=== PATIENT | male | born 1975 | race Caucasian/White ===

== ENCOUNTER → 2018-04-18 15:59 | Outpatient (CLI) | payer OTHER, SELFPAY ==
[2018-04-18 17:54] LABS: Amphetamine Urine VISTA NEGATIVE (<1000 ng/mL); Barbiturate Urine VISTA NEGATIVE (< 200 ng/mL); Benzodiazepine Urine VISTA NEGATIVE (< 200 ng/mL); Cocaine Urine VISTA NEGATIVE (< 300 ng/mL); Ecstacy Urine VISTA NEGATIVE (< 500 ng/mL); Methadone Urine VISTA NEGATIVE (< 300 ng/mL); PCP Urine VISTA NEGATIVE (< 25 ng/mL); THC Urine VISTA NEGATIVE (< 50 ng/mL); Vista UDS pH Range 5
== END ==
LOC: BFHLAB 16:00
PROVIDERS: Family Provider Family Medicine; PCP Family Medicine; Visit Provider Family Medicine
DX: Z51.81 Encounter for therapeutic drug level monitoring (principal)
CPT/HCPCS: 80307

== ENCOUNTER → 2018-09-19 10:05 | Outpatient (CLI) | payer OTHER, SELFPAY ==
[2018-09-19 12:17] LABS: Absolute Lymphocyte Count 2.09 X10^3/ul (0.83-4.51); Absolute Neutrophil Count 4.1 X10^3/uL (2.0-7.7); Basophil# 0.06 X10^3/uL; Basophil% 0.9 % (0-1); Eosinophil# 0.19 X10^3/uL; Eosinophils% 2.7 % (0-5); Hematocrit 47.8 % (40-54); Hemoglobin 16.2 g/dl (13.0-16.5); Lymphocyte # 2.09 X10^3/ul (4.0); Lymphocyte % 29.9 % (19-41); Mean Corp Hgb Conc 33.9 g/gl (32-36); Mean Corpuscular Hgb 30.1 pg (27.0-32.0); Mean Corpuscular Volume 88.7 fL (80-94); Mean Platelet Vol. 10.3 fl (6.2-12.0); Monocyte# 0.53 X10^3/uL; Monocyte% 7.6 % (0-10); Neutrophil % 58.8 % (47-70); Platelet Count 219 K/mm3 (150-450); RBC Distribution Width CV 13.3 % (11.6-14.6); RBC Distribution Width SD 43.5 fl (35.1-43.9); Red Blood Count 5.39 M/mm3 (4.6-6.2)
[2018-09-19 12:27] LABS: POSITIVE COUNT NO; POSITIVE DIFFERENTIAL NO; POSITIVE MORPHOLOGY NO
[2018-09-19 12:29] LABS: ALB/GLOB Ratio 1.1 RATIO (0.9-2.4); AST(SGOT) 23 U/L (15-37); Alanine Aminotransfer ALT/SGPT 72 U/L (16-61); Albumin, Serum 4.2 g/dL (3.2-5.0); Alkaline Phosphatase 49 U/L (45-117); Anion Gap 9 (5-15); BUN 18 mg/dL (7-18); BUN/Creat Ratio 16.7 RATIO (10-20); Calcium,Total 9.2 mg/dL (8.5-10.1); Chloride 107 mmol/L (98-107); Cholesterol 213 mg/dL (200); Creatinine, Serum 1.08 mg/dL (0.70-1.30); EST Glomerular Filtration Rate 80 mL/min (>60); Est Glom Filt Rate - Afr Amer 96 mL/min (>60); Globulin 3.9 g/dL (2.2-4.2); Glucose 92 mg/dL (74-106); High Density Lipoprotein 30 mg/dL; Potassium 4.4 mmol/L (3.5-5.1); Protein, Total 8.1 g/dL (6.4-8.2); Sodium Level 140 mmol/L (136-145); Triglycerides 313 mg/dL; Very Low Density Lipoprotein 63 mg/dL (5-40)
--- OUTSIDE RECORDS SUMMARY | 2018-11-14 05:13 | XMS RPT_ITS ---
:1975 Author Organization OHIP Care Team Providers Name Role Phone Hari Lares Attending Unavailable Hari Lares Primary Care Unavailable Hari Lares Attending Unavailable Hari Lares Primary Care Unavailable PROBLEMS PROBLEMS DATE TYPE CONDITION / CODE ATTENDING STATUS SOURCE 09/30/2018 Unknown I10 - Essential Hari Lares Active [place] (primary) [facility] hypertension / Hospital I10(ICD-10) Repository PROCEDURES PROCEDURES No Procedure Records FoundRESULTS RESULTS CBC W/DIFF, AUTOMATED Collected: 09/19/2018 Status: F Source: [facility] 10:07 AM [facility] HOSPITAL REPOSITORY TYPE CODE TESTS RESULT OUT OF RANGE REFERENCE UNITS LAB L100.1000 4.4-11.0 K/mm3 Normal WBC 7.0 LAB L100.1200 4.6-6.2 M/mm3 Normal RBC 5.39 LAB L100.1300 13.0-16.5 g/dl Normal HGB 16.2 LAB L100.1400 40-54 % Normal HCT 47.8 LAB L100.1500 80-94 fL Normal MCV 88.7 LAB L100.1600 27.0-32.0 pg Normal MCH 30.1 LAB L100.1700 32-36 g/gl Normal MCHC 33.9 LAB L100.1810 11.6-14.6 % Normal RDW CV 13.3 LAB L100.1820 35.1-43.9 fl Normal RDW SD 43.5 LAB L100.1900 150-450 K/mm3 Normal PLT 219 LAB L100.2000 6.2-12.0 fl Normal MPV 10.3 LAB L100.2100 47-70 % Normal NEUT% 58.8 LAB L100.2200 19-41 % Normal LY% 29.9 LAB L100.2300 0-10 % Normal MONO% 7.6 LAB L100.2400 0-5 % Normal EO% 2.7 LAB L100.2500 0-1 % Normal BASO% 0.9 LAB L100.2550 0.0-0.9 % Normal IM GRAN % 0.100 Result Comment: IG% - Immature Granulocytes (promyelocytes, myelocytes and metamyelocytes) > 1% indicates that a LEFT SHIFT is Present. LAB L100.2620 2.0-7.7 X10 3/uL Normal Absolute Neut 4.1 LAB L100.2720 0.83-4.51 X10 3/ul Normal Absolute Lymph 2.09 Performed By: #### L100.0100 #### [facility] [address] [place], [address] COMPREHENSIVE METABOLIC Collected: 09/19/2018 Status: F Source: [facility] 10:07 AM [facility] REPOSITORY Order Comment: Comments: TEMP TYPE CODE TESTS RESULT OUT OF RANGE REFERENCE UNITS LAB L501.0100 74-106 mg/dL Normal GLU 92 Result Comment: Please note revised GLUCOSE reference range effective 2017. LAB L501.1000 7-18 mg/dL Normal BUN 18 LAB L501.1100 0.70-1.30 mg/dL Normal CREAT,SERUM 1.08 Result Comment: The validity of the calculated GFR AND GFRAA in patients over 70 years has not been determined. Clinical correlation is essential. LAB L501.1110 >60 mL/min Normal EST GFR 80 Result Comment: Non- GFR Calc LAB L501.1115 >60 mL/min Normal EST GFR - AA 96 Result Comment: GFR Calc LAB L501.1300 10-20 RATIO Normal BUN/CRE 16.7 LAB L501.1500 6.4-8.2 g/dL T Normal PROT 8.1 LAB L501.1800 3.2-5.0 g/dL Normal ALB 4.2 LAB L501.1950 2.2-4.2 g/dL Normal GLOB 3.9 LAB L501.2000 0.9-2.4 RATIO Normal A/G 1.1 LAB L501.2200 8.5-10.1 mg/dL CA Normal 9.2 LAB L501.4100 15-37 U/L Normal AST 23 LAB L501.4305 45-117 U/L Normal ALK P 49 LAB L501.4405 16-61 U/L High ALT 72 LAB L501.4600 0.20-1.00 mg/dL T Normal BILI 0.40 LAB L501.5300 136-145 mmol/L NA Normal 140 LAB L501.5600 3.5-5.1 mmol/L K Normal 4.4 LAB L501.5900 98-107 mmol/L CL Normal 107 LAB L501.6100 21.0-32.0 mmol/L Normal CO2 24.0 LAB L501.6200 5-15 Normal GAP 9 Performed By: #### L500.4050, L500.4100 #### [facility] [address] [place], [place], [id number] LIPID PROFILE Collected: 09/19/2018 Status: F Source: [facility] 10:07 AM [facility] REPOSITORY Order Comment: Comments: RM TEMP TYPE CODE TESTS RESULT OUT OF RANGE REFERENCE UNITS LAB L501.4900 200 mg/dL High CHOL 213 Result Comment: <200 mg/dL Desirable 200-240 mg/dL Borderline >240 mg/dL High Risk LAB L501.5000 mg/dL High TRIG 313 Result Comment: The drugs N-Acetylcysteine and Metamizole may falsely depress this assay. Serum Triglycerides Reference Interval Normal <150 mg/dL Borderline high 150 - 199 mg/dL High 200 - 499 mg/dL Very High > or = 500 mg/dL LAB L501.6400 mg/dL Low HDL 30 Result Comment: The drugs N-Acetylcysteine and Metamizole may falsely depress this assay. Reference Range HDL <40 mg/dL Low HDL Cholesterol HDL >or= 60 mg/dL High HDL Cholesterol LAB L501.6500 0-130 mg/dL Normal LDL 120 LAB L501.6600 5-40 mg/dL High VLDL 63 Performed By: #### L500.4050, L500.4100 #### [facility] [address] [place], [place], [id number] MISCELLANEOUS LAB Collected: 09/19/2018 Status: F Source: [facility] PROCEDURE 10:07 AM [facility] REPOSITORY Order Comment: Comments: RM TEMP Test(s) Ordered: [id number] TYPE CODE TESTS RESULT OUT OF RANGE REFERENCE UNITS LAB L801.1541 Normal [facility] TEST Result Comment: TEST RESULT LIMITS Drug Screen 16 w/Conf, WB AMPHETAMINES, [place] Negative ng/mL Cutoff:50 BARBITURATES, [place] Negative ug/mL Cutoff:0.1 BENZODIAZEPINES, [place] Negative ng/mL Cutoff:20 COCAINE/METABOLITE,[place] Negative ng/mL Cutoff:25 PHENCYCLIDINE, [place] Negative ng/mL Cutoff:8 THC (MARIJUANA) MTB,IA Negative ng/mL Cutoff:5 OPIATES, [place] Negative ng/mL Cutoff:5 OXYCODONES, [place] Negative ng/mL Cutoff:5 METHADONE, [place] Negative ng/mL Cutoff:25 FENTANYL, [place] Negative ng/mL Cutoff:1.0 BUPRENORPHINE, [place] Negative ng/mL Cutoff:1.0 PROPOXYPHENE, [place] Negative ng/mL Cutoff:50 MEPERIDINE, IA Negative ng/mL Cutoff:100 TRAMADOL, [place] Negative ng/mL Cutoff:50 GABAPENTIN, [place] Negative ug/mL Cutoff:1.0 CARISOPRODOL, [place] Negative ug/mL Cutoff:0.5 This test was developed and its performance characteristics determined by [facility]. It has not been cleared or approved by the Food and Drug Administration. TESTING PERFORMED AT [facility]. ORIGINAL REPORT ON FILE IN LAB CONTAINS ADDITIONAL TEST SITE INFORMATION. Performed By: #### L801.1541 #### [facility] [address] [place], [address] URINE DRUG SCREEN Collected: 04/18/2018 Status: F Source: [facility] (VISTA) 4:01 PM [facility] REPOSITORY Order Comment: List of Drugs Taken or Suspected? U TYPE CODE TESTS RESULT OUT OF RANGE REFERENCE UNITS LAB L505.0075 TO BE Normal CONFIRMED Result Comment: CONFIRMATORY TESTING FOR ALL POSITIVE URINE DRUG SCREEN RESULTS WILL ONLY BE SENT OUT UPON PHYSICIAN ORDER. VISTA Urine Drug Screen methods provide only preliminary analytical test results. A more specific alternate chemical method must be used in order to obtain a confirmed analytical result. Gas chromatography/mass spectrometery (GC/MS) is the preferred confirmatory method. Clinical consideration and professional judgement should be applied to any drug of abuse test result, particularly when preliminary positive results are used. URINE TCA TESTING MUST BE ORDERED SEPARATELY. USE TEST MNEMONIC: [facility] LAB L505.5005 VISTA UDS PH 5 Normal LAB L505.5015 <1000 ng/mL AMPHETAMINES Normal NEGATIVE LAB L505.5025 < 200 ng/mL BARBITIURATES Normal NEGATIVE LAB L505.5035 < 200 ng/mL BENZODIAZIPINE Normal NEGATIVE LAB L505.5045 < 300 ng/mL COCAINE Normal NEGATIVE LAB L505.5055 < 500 ng/mL ECSTACY Normal NEGATIVE LAB L505.5065 < 300 ng/mL METHADONE Normal NEGATIVE LAB L505.5075 < 300 ng/mL OPIATES Normal NEGATIVE LAB L505.5085 < 25 ng/mL PCP Normal NEGATIVE LAB L505.5095 < 50 ng/mL THC Normal NEGATIVE Performed By: #### L505.5000 #### [facility] [address] [place], [address] ALLERGIES ALLERGIES No Allergies Records FoundENCOUNTERS ENCOUNTERS ADMIT/DISCHARGE ACCOUNT ADMITTING ENCOUNTER LOCATION SOURCE NUMBER CLASS 09/19/2018 [id number] Ambulatory [facility] 7 [facility] ing:BFHLAB Repository 04/18/2018 [id number] [facility] 4 [facility] ing:BFHLAB Repository PAYERS PAYERS ENCOUNTER GUARANTOR PAYER SUBSCRIBER SOURCE 09/19/2018 Dmitriy Good [facility] Dmitriy C[facility] Insurance:ESPERANZA MarieOB: [facility] [id number] [address]Dcb: Number: Repository [id number] (HP) Date:[id number] [id number]: 09/19/2018 Secondary NOT GIVENUNK William Insurance:SELF PAY [facility] Number: Effective Repository Date:2018-09-19 04/18/2018 Dmitriy [id number] Primary Dmitriy [address] Insurance:CARESOURCE StevemanDOB: [facility] [id number] [address]Qxr: Number: Repository [id number] (HP) Date:[id number], [place] [address]RZ: 04/18/2018 Secondary NOT GIVENUNK [place] Insurance:SELF PAY [facility] Number: Effective Repository Date:2018-04-18
== END ==
PROVIDERS: Family Provider Family Medicine; PCP Family Medicine; Visit Provider Family Medicine
DX: I10 Essential (primary) hypertension (principal); E66.9 Obesity, unspecified; Z51.81 Encounter for therapeutic drug level monitoring
CPT/HCPCS: 36415; 80053; 80061; 85025

== ENCOUNTER 2019-05-19 23:37 | Emergency (ER) | payer SELFPAY ==
[2019-05-19 23:38] VITALS: BP 141/91; PULSE 86; RESP 16; TEMP 36.3; O2SAT 97; BMI 31.6
--- NOTE | 2019-05-19 23:55 | ED.VISSUMM ---
- ER Visit Summary Date of Service: 05/19/19 Chief Complaint: Foot pain History of Present Illness: The patient is a 43 M who presents with left foot pain. He initially had itching this morning. He then noticed a blister along the fourth toe and some cracking between the toes. He then developed increased redness and weeping. No fevers. He is not diabetic. No history of prior similar symptoms. Physical Examination: Afebrile vitals unremarkable Moist mucous membranes Heart regular Respiratory distress The space between the left third and fourth toes is moist erythematous and weeping with cracked skin. There is some erythema of the left fourth toe extending onto the top of the foot. No lymphangitic streaking. Mild soft tissue swelling. Test Results: Not indicated Emergency Department Course and Treatment: Examination is consistent with tinea pedis with a secondary bacterial infection/cellulitis. We will treat with Keflex. He was also advised on antifungal cream [id number] such as Lotrimin. He will follow-up as an outpatient but does understand to return for new or worsening symptoms. Patient agreeable with this plan was discharged. Treatment Plan: [] Disposition: Discharge Impression: Cellulitis left foot Tinea pedis This note was generated with BriefCam dictation software. It may contain incorrect words, spelling, and punctuation that were not noted in review of the chart prior to signing ED Disposition - Plan for ED Patient: Referrals: Hari Lares DO [Primary Care Provider] -
--- NOTE | 2019-05-19 23:57 | ED.DEP ---
ED Disposition - Plan for ED Patient: Instructions: Athlete'S Foot, Cellulitis Prescriptions: Cephalexin [Keflex] 500 mg PO Q6 #40 cap Prescription Printed Referrals: Hari Lares DO [Primary Care Provider] -
[2019-05-20 00:12] VITALS: RESP 14
== END 2019-05-20 00:12 | disposition home or self-care (01) ==
PROVIDERS: Emergency Provider Emergency Medicine; Family Provider Family Medicine; PCP Family Medicine
DX: L03.116 Cellulitis of left lower limb (principal); B35.3 Tinea pedis; I10 Essential (primary) hypertension; Z72.0 Tobacco use
CPT/HCPCS: 99282

== ENCOUNTER → 2020-06-22 10:26 | Outpatient (CLI) | payer SELFPAY ==
[2020-06-22 12:34] LABS: Insulin 13.4 mU/L (2.6-37.6)
[2020-06-22 12:38] LABS: AST(SGOT) 11 U/L (15-37); Alanine Aminotransfer ALT/SGPT 27 U/L (16-61); Albumin, Serum 3.8 g/dL (3.2-5.0); Alkaline Phosphatase 40 U/L (45-117); Anion Gap 5 (5-15); BUN 9 mg/dL (7-18); BUN/Creat Ratio 9.6 RATIO (10-20); Calcium,Total 8.7 mg/dL (8.5-10.1); Chloride 108 mmol/L (98-107); Creatinine, Serum 0.94 mg/dL (0.70-1.30); EST Glomerular Filtration Rate 93 mL/min (>60); Est Glom Filt Rate - Afr Amer 113 mL/min (>60); Free T3 2.8 pg/mL (2.18-3.98); Globulin 3.8 g/dL (2.2-4.2); Glucose 88 mg/dL (74-106); Potassium 4.7 mmol/L (3.5-5.1); Protein, Total 7.6 g/dL (6.4-8.2); Sodium Level 139 mmol/L (136-145); T4 Free Direct 0.96 ng/dL (0.76-1.46); Thyroid Stim Hormone (TSH) 2.21 uIU/mL (0.358-3.74)
== END ==
LOC: BFHLAB 10:27
PROVIDERS: PCP Family Medicine; Visit Provider Family Medicine
DX: R00.2 Palpitations (principal); R61 Generalized hyperhidrosis; I10 Essential (primary) hypertension; E16.2 Hypoglycemia, unspecified
CPT/HCPCS: 36415; 80053; 82533; 83525; 84439; 84443; 84481

== ENCOUNTER → 2020-06-30 13:12 | Outpatient (CLI) | payer SELFPAY ==
--- NOTE | 2020-06-30 13:17 | STE_ITS ---
Reason For Study: INTERMITTENT PALPITATIONS Stress Results Protocol: Stress Echocardiogram Maximum Predicted HR: 177 bpm Target HR: 150 bpm % Maximum Predicted HR: 97 % DurationHeart Rate Stage (mm:ss) (bpm) BP Comment BASELINE 74 128/82 YUMIKO PROTOCOL- STAGE 1 3:00 104 142/68NO SX YUMIKO PROTOCOL- STAGE 2 3:00 122 150/74NO SX YUMIKO PROTOCOL- STAGE 3 3:00 150 160/70CALVES BURNING, SL DYSPNEA YUMIKO PROTOCOL- STAGE 4 1:00 171 / CALVES BURNING, DYSPNEA RECOVERY 97 134/76SX SUBSIDED Stress Duration: 10:00 mm:ss Maximum Stress HR: 171 bpm Baseline Echocardiogram Findings The estimated ejection fraction is 60 %. post stress EF is 70%. Stress Echo Wall motion Data Resting WM Intermediate WM Stress WM Resting Wall Motion Wall Motion Stress No regional wall motion No regional wall motion abnormalities noted. abnormalities noted. EKG Data The baseline ECG displays normal sinus rhythm. No significant ST- T changes. Symptoms with Stress The patient experinced no chest pain . Interpretation Summary The estimated ejection fraction is 60 %. Stress echo is negative for stress induced CP or EKG or Echocardiographic changes of ischemia. Functional capacity is normal for age Ordering Physician: Hari Lares Referring Physician: Hari Lares Performed By: Kalyani Madison, KAYLEE
== END ==
PROVIDERS: PCP Family Medicine; Referring Provider Family Medicine; Visit Provider Family Medicine
DX: R00.2 Palpitations (principal); R61 Generalized hyperhidrosis; I10 Essential (primary) hypertension
CPT/HCPCS: 93017; 93350

== ENCOUNTER 2023-02-19 13:59 | Emergency (ER) | payer SELFPAY ==
[2023-02-19 14:00] VITALS: BP 153/104; PULSE 81; RESP 16; TEMP 36.3; O2SAT 100; BMI 35.5
[2023-02-19 14:07] VITALS: BMI 35.8
[2023-02-19 14:10] VITALS: BP 159/101; PULSE 76; RESP 16; O2SAT 96
[2023-02-19 14:31] LABS: Bedside Glucose 133 mg/dL (74-106)
[2023-02-19] MEDS: Aspirin 81 MG TAB.CHEW 324 MG PO (14:52)
[2023-02-19 14:53] LABS: Absolute Lymphocyte Count 2.21 X10^3/uL (0.83-4.51); Basophil# 0.09 X10^3/uL; Basophil% 1.3 % (0-1); Eosinophil# 0.31 X10^3/uL; Eosinophils% 4.3 % (0-5); Hematocrit 49.9 % (40-54); Hemoglobin 16.6 g/dL (13.0-16.5); Lymphocyte # 2.21 X10^3/ul (0.83-4.51); Lymphocyte % 30.9 % (19-41); Mean Corp Hgb Conc 33.3 g/dL (32-36); Mean Corpuscular Hgb 29.8 pg (27.0-32.0); Mean Corpuscular Volume 89.6 fL (80-94); Mean Platelet Vol. 9.7 fl (6.2-12.0); Monocyte# 0.56 X10^3/uL; Monocyte% 7.8 % (0-10); NRBC Flagged by Analyzer 0 % (0-5); Neutrophil # 3.95 X10^3/uL (2.7-7.7); Neutrophil % 55.1 % (47-70); Platelet Count 206 K/mm3 (150-450); RBC Distribution Width CV 13.1 % (11.6-14.6); RBC Distribution Width SD 43.2 fl (35.1-43.9); Red Blood Count 5.57 M/mm3 (4.6-6.2); White Blood Count 7.2 K/mm3 (4.4-11.0)
--- NOTE | 2023-02-19 14:56 | RAD_ITS ---
STUDY: X-RAY CHEST REASON FOR EXAM: Male, 47 years old. Chest pain TECHNIQUE: Single AP portable view of the chest. COMPARISON: None. FINDINGS: EKG electrodes are seen. The lungs are clear and expanded. There is no demonstrated pleural abnormality. Normal size heart. Normal mediastinum and dylon. Normal visualized pulmonary arteries. Normal visualized aortic arch and descending thoracic aorta. Normal visualized thoracic spine. Normal visualized ribs, clavicles, and shoulders. There is no demonstrated abnormality of the visualized soft tissue structures of the upper abdomen. RAD/Chest 1 View (Portable) IMPRESSION: Normal x-ray examination of the chest. Electronically Signed: Maxi De Paz MD at 15:15 EDT ,
[2023-02-19 15:02] LABS: Anion Gap 7 (5-15); BUN 13 mg/dL (7-18); BUN/Creat Ratio 12.3 RATIO (10-20); CPK Total, Creatine Kinase 252 U/L (39-308); Calcium,Total 9.2 mg/dL (8.5-10.1); Chloride 104 mmol/L (98-107); Creatinine, Serum 1.06 mg/dL (0.70-1.30); EST Glomerular Filtration Rate 80 mL/min (>60); Est Glom Filt Rate - Afr Amer 97 mL/min (>60); Estimated Creatinine Clearance 92.74 ml/min; Glucose 133 mg/dL (74-106); Magnesium 2.2 mg/dL (1.6-2.6); Potassium 4.1 mmol/L (3.5-5.1); Sodium Level 138 mmol/L (136-145); Troponin-I HS (w/2H Reflex) 4 pg/mL (3.0-78.0)
[2023-02-19 15:03] LABS: D-Dimer Quantitative (DVT/PE) < 0.27 FEU/ug/m (0.27-0.49)
[2023-02-19 15:17] VITALS: BP 152/83; PULSE 79; RESP 16; O2SAT 96
--- NOTE | 2023-02-19 15:49 | EDS_ITS ---
HPI History of Present Illness Chief Complaint: Neuro S/Sx Informant: patient Narrative Narrative: Patient is a 47-year-old male with history of hypertension and possible prediabetes presenting with chest pain. Patient states he was down in [place] for a car race on Saturday. He states the next day he was tired and less active than normal. Today while driving for work he does not remember part of the drive and does not remember crossing the state line. He thought maybe his blood sugar was low and ate some candy. He talked to his cousin was feeling better. He then did not remember driving back to early. He notes that around noon today he started developing pain in the left side of his chest that radiates to his axilla and proximal left arm. States the pain last for 9 to 12 minutes at a time. It is worse when he coughs. He denies any shortness of breath. Nuys any swelling of his legs. Denies any history of DVT or PE. Denies any exercise intolerance. Did take tramadol today. Notes that he also has developed some sharp, shocking pain in his left anterior thigh. He notes he does have a history of back issues. His last tress test was in 2015. Denies any other complaints at this time. [facility] Medical History HTN (hypertension) Prediabetes Medical History no medical history Home Medications cephalexin 500 mg capsule 500 mg PO Q6 #40 caps 05/19/19 [Rx Last Taken Unknown] metoprolol succinate 50 mg tablet,extended release 24 hr 50 mg PO DAILY 05/19/19 [History Last Taken Unknown] Allergy/AdvReac Type Severity Reaction Status Date / Time amoxicillin Allergy Rash Verified 02/19/23 14:03 Penicillins [PCN] Allergy Rash Verified 02/19/23 14:03 Social History Smoking Status: Current every day smoker tobacco type: cigarettes ROS ROS ED Constitutional Constitutional ED: Denies chills or fever(s) Eyes Eyes: Denies change in vision ENT ENT ED: Denies sore throat Cardiovascular Cardiovascular: Reports chest pain; Denies palpitations Respiratory/Chest Respiratory/Chest: Denies cough, dyspnea or dyspnea on exertion Gastrointestinal Gastrointestinal: Denies abdominal pain, diarrhea, nausea or vomiting Genitourinary Genitourinary ED: Denies dysuria Musculoskeletal Musculoskeletal: Reports arthralgias and myalgias; Denies back pain or neck pain Integumentary Denies rash Neurologic Neurologic: Denies headache(s), paresthesias or weakness Psychiatric Psychiatric: Denies anxiety Hematologic/Lymphatic Hematologic/Lymphatic: Denies easy bleeding or easy bruising EXAM Physical Exam Const Vital Signs: 02/19/23 14:00 02/19/23 14:08 02/19/23 14:10 Temperature 97.4 F L Temperature Source Temporal Pulse Rate 81 76 Respiratory Rate 16 16 Respiratory Effort Normal Blood Pressure 153/104 H 159/101 H Blood Pressure Mean 120 120 Pulse Ox 100 96 Oxygen Delivery Method Room Air Room Air 02/19/23 14:52 02/19/23 15:17 02/19/23 16:09 Temperature Temperature Source Pulse Rate 79 75 Respiratory Rate 16 14 Respiratory Effort Blood Pressure 152/83 H 152/102 H Blood Pressure Mean 106 118 Pulse Ox 96 96 Oxygen Delivery Method Room Air Room Air Room Air Positive well nourished and well developed General Appearance ED: well developed and NAD HEENT Reports moist mucous membranes Eyes PERRL and EOMs intact bilaterally Neck supple and no JVD Chest Wall inspection of chest normal and palpation of chest normal Chest Narrative: No chest wall tenderness to palpation Resp normal respiratory effort and clear to auscultation bilaterally Cardio regular rate, regular rhythm and no murmurs GI normal to inspection, nondistended, normoactive bowel sounds and non-tender Extremity normal to inspection Extremity Narrative: 2+ radial and DP pulses Patient points to his left anterior thigh as area of his pain. Is worsened with flexion of the hip. General Extremety ED: Negative for edema or tenderness General Extremity: Negative for edema Neuro oriented x3 Sensorium / Orientation: alert Motor Exam: Negative for general weakness Psych mental status grossly normal Skin no rashes or lesions noted and no wounds Skin Narrative: luis appearance MDM MDM MDM Narrative Medical decision making narrative: Patient evaluated for left-sided chest pain. He is also having some left leg pain however I think that is neuropathic in nature and seems to worsen with flexion of the hip. Questionably has a component of nerve compression from his spine. A cardiac work-up as well as D-dimer is obtained because of the patient's symptomatology. Patient is a current neurologic exam and is acting normally. 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 He denies any type of head trauma. CBC is remarkable for mildly elevated hemoglobin of 16.6. His BMP is largely normal. Initial high- sensitivity troponin is normal at 4. His D-dimer is less than 0.27 I do not suspect PE or think a CTA is indicated. CPK is normal. We will obtain a delta high-sensitivity troponin. If this is normal dissipate patient can be discharged with outpatient follow-up. Patient is agreeable this plan of care. Patient is given dose of aspirin in the emergency room. Work-up is coming back largely normal. The cause of his symptoms is not entirely clear. This is discussed with the patient. He is comfortable with outpatient follow-up. Discussed outpatient stress test with his primary care doctor. Given strict return precautions. Counseled that if he is getting worse or starts to come down with any new symptoms he should return to the emergency room. Lab Data Attestation: I reviewed the patient's lab results. Labs: Laboratory Results - last 24 hr 02/19/23 02/19/23 02/19/23 14:00 14:00 14:00 WBC 7.2 RBC 5.57 Hgb 16.6 H Hct 49.9 MCV 89.6 MCH 29.8 MCHC 33.3 RDW Std Deviation 43.2 RDW Coeff of Khai 13.1 Plt Count 206 MPV 9.7 Immature Gran % (Auto) 0.600 Neut % (Auto) 55.1 Lymph % (Auto) 30.9 [place] % (Auto) 7.8 Eos % (Auto) 4.3 Baso % (Auto) 1.3 H Absolute Neuts (auto) 4.0 Absolute Lymphs (auto) 2.21 Nucleated RBC % 0 D-Dimer Quant (PE/DVT) < 0.27 L Sodium 138 Potassium 4.1 Chloride 104 Carbon Dioxide 27.0 Anion Gap 7 BUN 13 Creatinine 1.06 Estim Creat Clear Calc 92.74 Est GFR (MDRD) Af Amer 97 Est GFR (MDRD) Non-Af 80 BUN/Creatinine Ratio 12.3 Glucose 133 H Calcium 9.2 Magnesium 2.2 Total Creatine Kinase 252 Troponin I High Sens 4 POC Glucose 02/19/23 14:08 WBC RBC Hgb Hct MCV MCH MCHC RDW Std Deviation RDW Coeff of Khai Plt Count MPV Immature Gran % (Auto) Neut % (Auto) Lymph % (Auto) [place] % (Auto) Eos % (Auto) Baso % (Auto) Absolute Neuts (auto) Absolute Lymphs (auto) Nucleated RBC % D-Dimer Quant (PE/DVT) Sodium Potassium Chloride Carbon Dioxide Anion Gap BUN Creatinine Estim Creat Clear Calc Est GFR (MDRD) Af Amer Est GFR (MDRD) Non-Af BUN/Creatinine Ratio Glucose Calcium Magnesium Total Creatine Kinase Troponin I High Sens POC Glucose 133 H Radiography Chest X-Ray - ED: 1 View, Read by ED Physician, Read by Radiologist and No Acute Disease Diagnostic Testing: Clinical Impression(s) from Imaging Studies Chest X-Ray 02/19/23 14:56 IMPRESSION: Normal x-ray examination of the chest. Electronically Signed: Maxi De Paz MD at 15:15 EDT Reading Location ID and State: [address] [place] [address] , Service support , Rhythm Strip Rhythm Strip: Sinus Rhythm Rate: 66 Ectopy: None EKG Initial EKG: Attestation: I personally reviewed and interpreted this EKG as follows: Interpretation: Sinus Rhythm Comments: Normal sinus rhythm at a rate of 66 bpm Normal intervals Normal axis Normal ST segments Prior EKG tracings: not available for review Prior: No Prior Differential Diagnosis Chest pain/SOB: pulmonary embolism Reason(s) PE less likely: Positive for Well's <3, D-Dimer negative, not tachycardic and not hypoxic, ACS ACS: Positive for no evidence of ACS based on cardiac biomarkers, EKG without ischemia and history not suggestive of ischemia pain, pneumothorax Reason(s) pneumothorax less likely: Positive for bilateral breath sounds and 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, pneumonia Reason(s) pneumonia less likely: Positive for no infiltrate on CXR, no elevation in WBC count and symptoms not consistent with acute infection and aortic dissection Reason(s) Aortic dissection less likely:: Positive for normal vascular exam, normal neurological exam, no widened mediastinum on CXR, no ripping/tearing pain and blood pressure appropriate in ED Discharge Plan Triage Chief Complaint: Neuro S/Sx Other Complaint: Chest Pain ED Provider: Grace Rodriguez Dx/Rx/DC Orders Clinical Impression: Chest pain of uncertain etiology, Malaise and fatigue Instructions: ED Chest Pain, Uncertain Cause Prescriptions: No Action metoprolol succinate 50 MG tablet extended release 24 hr 50 mg PO DAILY cephalexin 500 MG capsule 500 mg PO Q6 Qty: 40 0RF Primary Care Provider: Hari Lares Referrals: Hari Lares DO [Primary Care Provider] - Activity Restrictions/Additional Instructions: The exact cause your symptoms is not clear today however your work-up today did not reveal any obvious cause or pathology. Your heart looks largely normal. No signs of a blood clot. No signs of pneumonia. Please return to the ER should you develop any worsening symptoms. Otherwise please follow-up with your family doctor to discuss outpatient stress test Disposition Disposition: Home, Self Care Discharge Date/Time: 02/19/23 17:50
[2023-02-19 16:09] VITALS: BP 152/102; PULSE 75; RESP 14; O2SAT 96
[2023-02-19 16:45] LABS: Reflex Troponin-HS? (from REC) Y
[2023-02-19 17:18] LABS: Troponin-I HS 5 pg/mL (3.0-78.0)
[2023-02-19 17:49] VITALS: BP 147/98; RESP 16
== END 2023-02-19 17:50 | disposition home or self-care (01) ==
PROVIDERS: Emergency Provider Emergency Medicine; PCP Family Medicine; Visit Provider Emergency Medicine
DX: R07.9 Chest pain, unspecified (principal); R53.81 Other malaise; F17.210 Nicotine dependence, cigarettes, uncomplicated; I10 Essential (primary) hypertension; R53.83 Other fatigue; Z79.899 Other long term (current) drug therapy
CPT/HCPCS: 71045; 80048; 82550; 82962; 83735; 84484; 85025; 85379; 93005; 99284; A4216

== ENCOUNTER → 2023-12-30 | Outpatient (CLI) | payer SELFPAY ==
--- NOTE | 2023-12-30 11:00 | RAD_ITS ---
STUDY: X-RAY CHEST REASON FOR EXAM: Male, 48 years old. Chronic cough TECHNIQUE: PA and lateral views of the chest. COMPARISON: 02/19/2023 FINDINGS: The lungs are clear and expanded. There is no demonstrated pleural abnormality. Normal size heart. Normal mediastinum and dylon. Normal visualized pulmonary arteries. Normal visualized aortic arch and descending thoracic aorta. Normal visualized thoracic spine. Normal visualized ribs, clavicles, and shoulders. There is no demonstrated abnormality of the visualized soft tissue structures of the upper abdomen. RAD/Chest PA and Lateral IMPRESSION: Normal x-ray examination of the chest. Electronically Signed: Duane Wright MD at 8:47 EDT ,
== END | disposition home or self-care (01) ==
LOC: RAD 10:53
PROVIDERS: PCP Family Medicine; Referring Provider Family Medicine; Visit Provider Family Medicine
DX: R05.3 Chronic cough (principal)
CPT/HCPCS: 71046